=== PATIENT | male | born 1990 | race American Indian/Alaskan Native ===

== ENCOUNTER 2019-04-19 02:30 | Emergency (ER) | payer SELFPAY ==
[2019-04-19] MEDS ORDERED: TYLENOL PO ONE (02:42)
--- NOTE | 2019-04-19 02:53 | Emergency Department Report ---
ED Fall HPI - General Chief Complaint: Extremity Injury, Lower Stated Complaint: RT KNEE PAIN Time Seen by Provider: 04/19/19 02:49 Source: patient Mode of arrival: Ambulatory Limitations: No Limitations - History of Present Illness Initial Comments: Patient is a 28 yo AA male with no past medical history who presents to the ED with c/o acute onset persistent severe right knee pain after he twisted the right knee, lost balance and fell down about 12 hours ago. Patient states that he heard a "pop" sound in the process. Patient states that the pain has worsened in the last 4 hours especially with ambulation or any physical activities. Patient denies head or neck injury, back pain, chest pain or shortness of breath, numbness and tingling of upper and lower extremities bilaterally, syncope or dizziness and loss of consciousness. MD Complaint: fall, other (right knee pain) -: Sudden, hour(s) (12) Fall From: standing When Fall Occurred: other (12 hours ago) Fall Witnessed: yes, by family Place Fall Occurred: home Loss of Consciousness: none Prolonged Down Time?: no Symptoms Prior to Fall: none Location: other (right knee) Location - Extremities: Right: Knee (right knee pain) Severity: severe Severity scale (0 -10): 6 Quality: sharp, aching Context: tripped/slipped (twisted right knee) Associated Symptoms: denies, other (right knee pain). denies: headache, neck pain, numbness, weakness, chest paint, shortness of breath, abdominal pain, hematuria, unable to walk, lightheaded, vertigo, confusion - Related Data Previous Rx's Medication Instructions Recorded Last Taken Type Acetaminophen/Codeine [Tylenol 1 tab PO Q6H PRN #12 tab 06/24/18 Unknown Rx /Codeine # 3 tab] Cyclobenzaprine [Flexeril] 10 mg PO Q8H PRN #15 tablet 04/19/19 Unknown Rx Ibuprofen [Motrin 600 MG tab] 600 mg PO Q8H PRN #20 tablet 04/19/19 Unknown Rx Allergies Allergy/AdvReac Type Severity Reaction Status Date / Time No Known Allergies Allergy Unverified 06/24/18 12:32 ED Review of Systems ROS: Stated complaint: RT KNEE PAIN Other details as noted in HPI Constitutional: denies: chills, fever Eyes: denies: eye pain, eye discharge, vision change ENT: denies: ear pain, throat pain Respiratory: denies: cough, shortness of breath, wheezing Cardiovascular: denies: chest pain, palpitations, dyspnea on exertion, syncope, paroxysmal nocturnal dyspnea Endocrine: no symptoms reported Gastrointestinal: denies: abdominal pain, nausea, diarrhea Genitourinary: denies: urgency, dysuria Musculoskeletal: arthralgia (right knee pain). denies: back pain, joint swelling Skin: denies: rash, lesions, change in color, change in hair/nails Neurological: denies: headache, weakness, paresthesias Psychiatric: denies: anxiety, depression Hematological/Lymphatic: denies: easy bleeding, easy bruising ED Past Medical Hx - Past Medical History Previous Medical History?: No - Surgical History Past Surgical History?: No - Social History Smoking Status: Current Every Day Smoker Substance Use Type: None - Medications Home Medications: Home Medications Medication Instructions Recorded Confirmed Last Taken Type Acetaminophen/Codeine [Tylenol 1 tab PO Q6H PRN #12 tab 06/24/18 Unknown Rx /Codeine # 3 tab] Cyclobenzaprine [Flexeril] 10 mg PO Q8H PRN #15 tablet 04/19/19 Unknown Rx Ibuprofen [Motrin 600 MG tab] 600 mg PO Q8H PRN #20 tablet 04/19/19 Unknown Rx ED Physical Exam - General Limitations: No Limitations General appearance: alert, in no apparent distress - Head Head exam: Present: atraumatic, normocephalic, normal inspection - Eye Eye exam: Present: normal appearance, PERRL, EOMI. Absent: scleral icterus, conjunctival injection, nystagmus Pupils: Present: normal accommodation - ENT ENT exam: Present: normal exam, normal orophraynx, mucous membranes moist, TM's normal bilaterally, normal external ear exam - Neck Neck exam: Present: normal inspection, full ROM. Absent: tenderness, meningismus, lymphadenopathy, thyromegaly - Respiratory Respiratory exam: Present: normal lung sounds bilaterally. Absent: respiratory distress, wheezes, rales, rhonchi, chest wall tenderness, accessory muscle use, decreased breath sounds - Cardiovascular Cardiovascular Exam: Present: regular rate, normal rhythm, normal heart sounds. Absent: systolic murmur, diastolic murmur, rubs, gallop - GI/Abdominal GI/Abdominal exam: Present: soft, normal bowel sounds. Absent: distended, tenderness, guarding, hyperactive bowel sounds, hypoactive bowel sounds, organomegaly, mass - Rectal Rectal exam: Present: deferred - Extremities Exam Extremities exam: Present: normal inspection, full ROM, tenderness (right knee tenderness), normal capillary refill. Absent: pedal edema, joint swelling, calf tenderness - Back Exam Back exam: Present: normal inspection, full ROM. Absent: tenderness, CVA tenderness (R), CVA tenderness (L), muscle spasm, paraspinal tenderness, vertebral tenderness - Neurological Exam Neurological exam: Present: alert, oriented X3, CN II-XII intact, normal gait, reflexes normal - Psychiatric Psychiatric exam: Present: normal affect, normal mood - Skin Skin exam: Present: warm, dry, intact, normal color, other (Bleeding frontal scalp laceration). Absent: rash ED Course Vital Signs 04/19/19 04/19/19 02:35 03:27 Temperature 97.7 F Pulse Rate 121 H Respiratory 18 16 Rate Blood Pressure 137/89 O2 Sat by Pulse 93 Oximetry - Reevaluation(s) Reevaluation #1: 04/19/19 03:52 This is a 28-year-old male who presented to the ED with right knee pain after he twisted the knee and fell down 12 hours ago. In the ED, patient is alert and oriented 3 and is not in distress but tachycardic in triage. Patient was treated for pain in the ED and right knee x-ray shows no acute fractures or subluxations. Patient's right knee was splinted with Kurtis wrap and patient discharged home on pain medications and muscle relaxants. Patient was advised to follow-up with his primary care physician in 7-10 days for reevaluation or return to the ED immediately if symptoms get worse. The patient's vital signs were rechecked on the tachycardia resolved. ED Medical Decision Making - Radiology Data Radiology results: report reviewed, image reviewed Right knee x-ray: Shows no acute fractures or subluxations - Medical Decision Making This is a 28-year-old male who presented to the ED with right knee pain after he twisted the knee and fell down 12 hours ago. In the ED, patient is alert and oriented 3 and is not in distress but tachycardic in triage. Patient was treated for pain in the ED and right knee x-ray shows no acute fractures or subluxations. Patient's right knee was splinted with Kurtis wrap and patient discharged home on pain medications and muscle relaxants. Patient was advised to follow-up with his primary care physician in 7-10 days for reevaluation or return to the ED immediately if symptoms get worse. The patient's vital signs were rechecked on the tachycardia resolved. - Differential Diagnosis right knee sprain, muscle strain knee; right leg contusion; knee fracture Critical care attestation.: If time is entered above; I have spent that time in minutes in the direct care of this critically ill patient, excluding procedure time. ED Disposition Clinical Impression: Sprain of right knee Qualifiers: Encounter type: initial encounter Involved ligament of knee: unspecified ligament Qualified Code(s): S83.91XA - Sprain of unspecified site of right knee, initial encounter Muscle strain of right knee Qualifiers: Encounter type: initial encounter Qualified Code(s): S86.911A - Strain of unspecified muscle(s) and tendon(s) at lower leg level, right leg, initial e ncounter Disposition: TO HOME OR SELFCARE Is pt being admited?: No Does the pt Need Aspirin: No Condition: Stable Instructions: Knee Sprain (ED), Muscle Strain (ED) Additional Instructions: Take medications with food, drink plenty of fluids and follow-up with your primary care physician in 7-10 days for reevaluation. Return to the ED immediately if symptoms get worse. Prescriptions: Cyclobenzaprine [Flexeril] 10 mg PO Q8H PRN #15 tablet PRN Reason: Muscle Spasm Ibuprofen [Motrin 600 MG tab] 600 mg PO Q8H PRN #20 tablet PRN Reason: Pain Referrals: [facility] [Outside] - 3-5 Days Time of Disposition: 03:18 Print Language: GREEK
--- NOTE | 2019-04-19 03:09 | XRay Report ---
Right knee-2 views INDICATION: pain/swelling. Acute generalized pain and swelling. COMPARISON: None. IMPRESSION: No acute osseous or soft tissue abnormality. No significant DJD. Signer Name: Baldev Arrington MD Signed: 04/19/2019 3:05 AM Workstation Name: [id number]
[2019-04-19 03:50] VITALS: BP 141/91
== END 2019-04-19 03:49 | disposition home or self-care (01) ==
LOC: ED 02:30
DX: S86.911A Strain of unspecified muscle(s) and tendon(s) at lower leg level, right leg, initial encounter (principal); F17.200 Nicotine dependence, unspecified, uncomplicated; Z79.899 Other long term (current) drug therapy; W18.39XA Other fall on same level, initial encounter; Y93.89 Activity, other specified; Y92.89 Other specified places as the place of occurrence of the external cause; Y99.8 Other external cause status

== ENCOUNTER 2019-06-08 00:33 | Emergency (ER) | payer SELFPAY ==
[2019-06-08] MEDS ORDERED: IBUPROFEN 800 MG TAB PO ONE (02:39)
[2019-06-08] MEDS ORDERED: predniSONE 20 MG TAB PO ONE (02:39)
[2019-06-08] MEDS ORDERED: ALBUTEROL 2.5 MG/3 ML NEBU IH ONE (02:40)
--- NOTE | 2019-06-08 02:47 | Emergency Department Report ---
Minor Respiratory - HPI Chief Complaint: Upper Respiratory Infection Stated Complaint: SORE THROAT/COUGH Time Seen by Provider: 06/08/19 02:33 Duration: Today Severity: mild Minor Respiratory: Yes Rhinorrhea, Yes Able to Tolerate Fluids, Yes Cough, Yes Chest Pain (pain with cough), No Sore Throat, No Ear Pain, No Shortness of Breath, No Fever Other History: 28 y/o -[place] male presents to the emergency room for sore throat, cough, runny nose chest hurts when he takes a deep breath and this all started this morning. Patient reports he took Robitussin for pain. Patient also has nasal congestion runny nose. He reports a past medical history of asthma but has been out of his medications for a while. ED Review of Systems ROS: Stated complaint: SORE THROAT/COUGH Other details as noted in HPI ED Past Medical Hx - Past Medical History Previous Medical History?: Yes Hx Asthma: Yes - Surgical History Past Surgical History?: No - Social History Smoking Status: Current Every Day Smoker Substance Use Type: None - Medications Home Medications: Home Medications Medication Instructions Recorded Confirmed Last Taken Type Acetaminophen/Codeine [Tylenol 1 tab PO Q6H PRN #12 tab 06/24/18 Unknown Rx /Codeine # 3 tab] Cyclobenzaprine [Flexeril] 10 mg PO Q8H PRN #15 tablet 04/19/19 Unknown Rx Ibuprofen [Motrin 600 MG tab] 600 mg PO Q8H PRN #20 tablet 04/19/19 Unknown Rx Albuterol Sulfate [Proventil Hfa] 6.7 gm IH QID PRN #1 hfa.aer.ad 06/08/19 Unknown Rx Ibuprofen [Motrin 800 MG tab] 800 mg PO Q8HR PRN #15 tablet 06/08/19 Unknown Rx predniSONE [Deltasone] 40 mg PO QDAY #20 tab 06/08/19 Unknown Rx Minor Respiratory Exam - Exam General: Vital signs noted. No distress. Alert and acting appropriately. HEENT: Yes Moist Mucous Membranes, No Pharyngeal Erythema, No Pharyngeal Exudates, No Rhinorrhea, No Conjuctival Injection, No Frontal Tenderness, No Maxillary Tenderness Ear: Neither TM Bulge, Neither TM Erythema, Neither EAC Pain, Neither EAC Discharge Neck: Yes Supple, No Adenopathy Lungs: Yes Good Air Exchange, No Wheezes, No Ronchi, No Stridor, No Cough, No Labored Respirations, No Retractions, No Use of Accessory Muscles, No Other Abnormal Lung Sounds Heart: Yes Regular, No Murmur Abdomen: Yes Normal Bowel Sounds, No Tenderness, No Peritoneal Signs Skin: No Rash, No Edema Neurologic: Alert and oriented, no deficits. Musculoskeletal: Unremarkable. ED Course Vital Signs 06/08/19 00:39 Temperature 98.4 F Pulse Rate 112 H Respiratory 18 Rate Blood Pressure 116/78 O2 Sat by Pulse 97 Oximetry ED Medical Decision Making - Medical Decision Making 28 y/o -[place] male presents to the emergency room for sore throat, cough, runny nose chest hurts when he takes a deep breath and this all started this morning. Patient reports he took Robitussin for pain. Patient also has nasal congestion runny nose. He reports a past medical history of asthma but has been out of his medications for a while. Was given steroids, albuterol inhaler and ibuprofen. Patient be discharged home on ibuprofen steroids and albuterol inhaler. Provider recheck patient sat Natta 100% with a heart rate of 95. Critical care attestation.: If time is entered above; I have spent that time in minutes in the direct care of this critically ill patient, excluding procedure time. ED Disposition Clinical Impression: Asthma, Allergic rhinitis, Tenderness of chest wall Disposition: [id number] TO HOME OR SELFCARE Is pt being admited?: No Does the pt Need Aspirin: No Condition: Stable Instructions: Chest Pain (ED), Asthma (ED), Costochondritis (ED), Allergic Rhinitis (ED), Reactive Airways Disease (ED) Prescriptions: predniSONE [Deltasone] 40 mg PO QDAY #20 tab Ibuprofen [Motrin 800 MG tab] 800 mg PO Q8HR PRN #15 tablet PRN Reason: Pain , Severe (7-10) Albuterol Sulfate [Proventil Hfa] 6.7 gm IH QID PRN #1 hfa.aer.ad PRN Reason: Cough Referrals: PRIMARY CARE, [Primary Care Provider] - 3-5 Days [facility] [Outside] - 3-5 Days
[2019-06-08 03:46] VITALS: BP 118/76
== END 2019-06-08 03:47 | disposition home or self-care (01) ==
LOC: ED 00:33
DX: J45.909 Unspecified asthma, uncomplicated (principal); R07.89 Other chest pain; F17.200 Nicotine dependence, unspecified, uncomplicated; Z79.899 Other long term (current) drug therapy; Z79.1 Long term (current) use of non-steroidal anti-inflammatories (NSAID)
CPT/HCPCS: 94640; 99283; J7512

== ENCOUNTER 2021-03-08 14:40 | Emergency (ER) | payer SELFPAY ==
[2021-03-08] MEDS ORDERED: ACETAMINOPHEN 500 MG TAB PO STA (17:56)
[2021-03-08] MEDS ORDERED: KETOROLAC 10 MG TAB PO ONE (17:56)
--- NOTE | 2021-03-08 18:00 | Emergency Department Report ---
ED General Adult HPI - General Chief complaint: Extremity Problem,Nontraumatic Stated complaint: THIGH PAIN Time Seen by Provider: 03/08/21 17:45 Source: patient Mode of arrival: Ambulatory Limitations: No Limitations - History of Present Illness Initial comments: 30-year-old -[place] male patient presents with complaints of right hip pain starting yesterday. Patient states when he was playing basketball yesterday, he jumped in the air and came down and felt a pop in his right hip. He rates his current pain as a 10/10 in severity and states it did not improve with ibuprofen at home. No numbness/tingling or weakness in his leg per patient. He states pain worsens with movement, however he has no difficulty moving his limb -: Sudden Severity scale (0 -10): 10 - Related Data Previous Rx's Medication Instructions Recorded Last Taken Type Acetaminophen/Codeine [Tylenol 1 tab PO Q6H PRN #12 tab 06/24/18 Unknown Rx /Codeine # 3 tab] Cyclobenzaprine [Flexeril] 10 mg PO Q8H PRN #15 tablet 04/19/19 Unknown Rx Ibuprofen [Motrin 600 MG tab] 600 mg PO Q8H PRN #20 tablet 04/19/19 Unknown Rx Albuterol Sulfate [Proventil Hfa] 6.7 gm IH QID PRN #1 hfa.aer.ad 06/08/19 Unknown Rx Ibuprofen [Motrin 800 MG tab] 800 mg PO Q8HR PRN #15 tablet 06/08/19 Unknown Rx predniSONE 40 mg PO QDAY #20 tab 06/08/19 Unknown Rx Naproxen 500 mg PO BID PRN #20 tablet 03/08/21 Unknown Rx methocarbamoL [Methocarbamol] 750 - 1,500 mg PO TID PRN #20 03/08/21 Unknown Rx tablet Allergies Allergy/AdvReac Type Severity Reaction Status Date / Time No Known Allergies Allergy Verified 02/24/20 18:02 ED Review of Systems ROS: Stated complaint: THIGH PAIN Other details as noted in HPI Constitutional: denies: chills, diaphoresis, fever, malaise Gastrointestinal: denies: abdominal pain Genitourinary: denies: urgency, dysuria, frequency, hematuria Musculoskeletal: arthralgia. denies: back pain, joint swelling Skin: denies: change in color Neurological: denies: numbness, paresthesias ED Past Medical Hx - Past Medical History Previous Medical History?: Yes Hx Asthma: Yes - Surgical History Past Surgical History?: No - Social History Smoking Status: Never Smoker Substance Use Type: None - Medications Home Medications: Home Medications Medication Instructions Recorded Confirmed Last Taken Type Acetaminophen/Codeine [Tylenol 1 tab PO Q6H PRN #12 tab 06/24/18 Unknown Rx /Codeine # 3 tab] Cyclobenzaprine [Flexeril] 10 mg PO Q8H PRN #15 tablet 04/19/19 Unknown Rx Ibuprofen [Motrin 600 MG tab] 600 mg PO Q8H PRN #20 tablet 04/19/19 Unknown Rx Albuterol Sulfate [Proventil Hfa] 6.7 gm IH QID PRN #1 hfa.aer.ad 06/08/19 Unknown Rx Ibuprofen [Motrin 800 MG tab] 800 mg PO Q8HR PRN #15 tablet 06/08/19 Unknown Rx predniSONE 40 mg PO QDAY #20 tab 06/08/19 Unknown Rx Naproxen 500 mg PO BID PRN #20 tablet 03/08/21 Unknown Rx methocarbamoL [Methocarbamol] 750 - 1,500 mg PO TID PRN #20 03/08/21 Unknown Rx tablet ED Physical Exam - General Limitations: No Limitations General appearance: alert, in no apparent distress - Head Head exam: Present: atraumatic, normocephalic - Eye Eye exam: Present: normal appearance - Respiratory Respiratory exam: Absent: respiratory distress - Cardiovascular Cardiovascular Exam: Present: regular rate - Expanded Lower Extremity Exam Right Hip exam: Present: full ROM, tenderness. Absent: swelling, laceration, ecchymosis, deformity, shortening Upper Leg exam: Present: normal inspection Knee exam: Present: normal inspection Lower Leg exam: Present: normal inspection Gait: Positive: antalgic - Neurological Exam Neurological exam: Present: alert, oriented X3 - Psychiatric Psychiatric exam: Present: normal affect, normal mood - Skin Skin exam: Present: warm, dry, intact, normal color. Absent: rash, ecchymosis ED Course Vital Signs 03/08/21 15:52 Temperature 98.6 F Pulse Rate 89 Respiratory 18 Rate Blood Pressure 144/106 [Right] O2 Sat by Pulse 97 Oximetry ED Medical Decision Making - Radiology Data Radiology results: report reviewed RIGHT HIP 2 VIEWS INDICATION / CLINICAL INFORMATION: pain and pop after injury. COMPARISON: None available. FINDINGS: No significant skeletal abnormality - Medical Decision Making 30-year-old -[place] male patient presents with complaints of right hip pain starting yesterday. Patient states when he was playing basketball yesterday, he jumped in the air and came down and felt a pop in his right hip. He rates his current pain as a 10/10 in severity and states it did not improve with ibuprofen at home. No numbness/tingling or weakness in his leg per patient. He states pain worsens with movement, however he has no walking moving his limb X-ray is normal. Will treat for hip strain with icing, NSAIDs, muscle relaxers. Patient provided with crutches. Discussed signs and symptoms that should prompt immediate return to the emergency department in detail patient verbalizes understanding. He is well-appearing, he is stable for discharge home. Patient to follow-up with orthopedics as needed. Patient's blood pressure also noted to be elevated-he denies history of hypertension. Discussed importance of primary care follow-up in 2 days for blood pressure recheck. No symptoms of headache, chest pain, dizziness, or num bness/tingling/weakness/difficulty with speech per patient. Critical care attestation.: If time is entered above; I have spent that time in minutes in the direct care of this critically ill patient, excluding procedure time. ED Disposition Clinical Impression: Elevated blood pressure reading Injury of right hip Qualifiers: Encounter type: initial encounter Qualified Code(s): S79.911A - Unspecified injury of right hip, initial encounter Disposition: TO HOME OR SELFCARE Is pt being admited?: No Condition: Stable Instructions: Hip Sprain, Hypertension, Adult Prescriptions: methocarbamoL [Methocarbamol] 750 - 1,500 mg PO TID PRN #20 tablet PRN Reason: muscle spasm/tightness Naproxen 500 mg PO BID PRN #20 tablet PRN Reason: pain Referrals: [facility] [Provider Group] - 3-5 Days
--- NOTE | 2021-03-08 18:52 | XRay Report ---
RIGHT HIP 2 VIEWS INDICATION / CLINICAL INFORMATION: pain and pop after injury. COMPARISON: None available. FINDINGS: No significant skeletal abnormality Signer Name: Puneet Lovell MD FACR Signed: 03/08/2021 6:48 PM Workstation Name: [id number]
[2021-03-08 23:42] VITALS: BP 139/94
== END 2021-03-08 20:00 | disposition home or self-care (01) ==
LOC: ED 14:40
DX: S79.911A Unspecified injury of right hip, initial encounter (principal); R03.0 Elevated blood-pressure reading, without diagnosis of hypertension; J45.909 Unspecified asthma, uncomplicated; Z72.89 Other problems related to lifestyle; Z79.899 Other long term (current) drug therapy; X58.XXXA Exposure to other specified factors, initial encounter; Y93.89 Activity, other specified; Y92.89 Other specified places as the place of occurrence of the external cause; Y99.8 Other external cause status
CPT/HCPCS: 99283